=== PATIENT | male | born 1965 | race Caucasian/White ===

== ENCOUNTER 2018-08-05 16:23 | Emergency (ER) | payer SELFPAY ==
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
== END 2018-08-05 17:27 | disposition home or self-care (01) ==
LOC: JP.ED 16:23
DX: S16.1XXA Strain of muscle, fascia and tendon at neck level, initial encounter (principal); Z90.49 Acquired absence of other specified parts of digestive tract; V49.49XA Driver injured in collision with other motor vehicles in traffic accident, initial encounter
CPT/HCPCS: 99283